=== PATIENT | female | born 1950 | race Caucasian/White ===

== ENCOUNTER 2017-07-16 08:37 | Day surgery (SDC) | payer MEDICARE, OTHER ==
[2017-07-16] MEDS ORDERED: LIDOCAINE HCL 1% MPF SOL ONE (10:51)
[2017-07-16] MEDS ORDERED: PROPOFOL 500 MG/50 ML EMU IV ONE (10:51)
[2017-07-16] MEDS ORDERED: PROPOFOL 10 MG/ML EMU IV ONE ×2 (10:51→11:01)
[2017-07-16 11:22] VITALS: RESP 18
[2017-07-16 11:52] VITALS: BP 127/68; PULSE 69; TEMP 97.4; O2SAT 96
== END 2017-07-16 12:09 | disposition home or self-care (01) | DRG 812 ==
LOC: SURG 08:37
PROVIDERS: ATTEND Surgery
DX: D50.0 Iron deficiency anemia secondary to blood loss (chronic) (principal); D12.3 Benign neoplasm of transverse colon; K22.9 Disease of esophagus, unspecified
CPT/HCPCS: J2001; J2704

== ENCOUNTER 2018-09-28 10:48 | Outpatient (CLI) | payer MEDICARE, OTHER ==
[2017-09-12 19:37] VITALS: O2SAT 97
== END 2018-09-28 10:49 | disposition home or self-care (01) | DRG 556 ==
LOC: CONVCARE 10:48
PROVIDERS: ATTEND Orthopaedic Surgery
DX: M25.562 Pain in left knee (principal); M25.561 Pain in right knee
CPT/HCPCS: 73562